=== PATIENT | female | born 1995 | race Caucasian/White ===

== ENCOUNTER 2022-05-17 10:23 | Outpatient (CLI) | payer BC, SELFPAY ==
[2022-05-17 16:19] LABS: Chlamydia DNA Amplified* NOT DETECTED (No Detected); GC DNA Amplified* NOT DETECTED (No Detected)
== END 2022-05-17 10:24 | disposition home or self-care (01) ==
PROVIDERS: PCP Physician Assistant; Visit Provider Physician Assistant
DX: R10.2 Pelvic and perineal pain (principal); N94.6 Dysmenorrhea, unspecified; Z12.4 Encounter for screening for malignant neoplasm of cervix
CPT/HCPCS: 87491; 87591; 87624; 88174; 88175

== ENCOUNTER 2022-05-22 08:01 | Outpatient (CLI) | payer BC, SELFPAY ==
--- NOTE | 2022-05-22 08:15 | CRLHL7_ITS ---
For Patients: As a result of the Century Cures Act, medical imaging exams and procedure reports are released immediately into your electronic medical record. You may view this report before your referring provider. If you have questions, please contact your health care provider. INDICATION: DYSMENORRHEA COMPARISON: none TECHNIQUE: 2D de guzman scale and color Doppler images were acquired of the pelvis using a transabdominal and transvaginal approach. Power Doppler evaluation of both ovaries also performed. FINDINGS: Sonographic images demonstrate a normal size and smooth outer contour of the uterus. Uterus measures 6.3 cm in length by 3.0 cm in AP diameter by 3.6 cm in transverse dimension. The myometrium has a normal uniform echotexture. The endometrial lining appears normal and measures 6 mm in composite thickness. The right ovary measures 3.6 x 1.7 x 2.3 cm in size and the left ovary measures 4.2 x 1.5 x 1.9 cm. The ovaries demonstrate normal arterial and venous blood flow on color Doppler analysis. Normal power Doppler evaluation of both ovaries. No torsion. There are no suspicious fluid collections within the cul-de-sac. IMPRESSION: Normal pelvic ultrasound. Dictated by Lee Mercado MD @ 05/22/2022 8:55:38 AM (Electronically Signed)
== END 2022-05-22 08:02 | disposition home or self-care (01) ==
LOC: US 08:01
PROVIDERS: PCP Physician Assistant; Visit Provider Physician Assistant
DX: N94.6 Dysmenorrhea, unspecified (principal)
CPT/HCPCS: 76830; 76856; 93976